=== PATIENT | male | born 1960 | race Caucasian/White ===

== ENCOUNTER 2021-07-09 18:17 | Emergency (ER) | payer OTHER ==
[~2021-07-09] VITALS: Ht 177 cm; Wt 72.5 kg
--- NOTE | 2021-07-09 18:42 | ED Chest Pain ---
General Chief Complaint: Chest Pain Stated Complaint: CHEST PAIN Source: patient (SOMEWHAT LIMITED HISTORIAN) History of Present Illness Date Seen by Provider: Jul 09, 2021 Time Seen by Provider: 18:19 Initial Comments PT ARRIVES VIA POV C/O CHEST PAIN STATES HE WAS DRIVING HOME FROM [place]--HAD ROUTINE FOLLOW UP APPOINTMENT AT TODAY--SEES ONCOLOGY AND ENT FOR HISTORY OF NASOPHARYNGEAL CANCER 4 YEARS AGO STATES HE WAS HAVING SOME PAIN WHILE HE WAS AT , BUT "THOUGHT IT WAS ANXIETY" STATES PAIN REALLY GOT WORSE ABOUT 2 HOURS AGO, WHILE DRIVING HOME--PT LIVES IN [place], [place] PAIN IS IN MID CHEST NO RADIATION OF PAIN NOTHING WORSENS OR IMPROVES PAIN NO SHORTNESS OF BREATH HAS HAD SLIGHT NAUSEA, NO VOMITING NO PALPITATIONS NO DIZZINESS OR SYNCOPE NO SWEATS NO SWELLING IN LEGS/FEET OR PAIN IN CALVES HAS HISTORY OF HTN, BUT DENIES HISTORY OF HEART PROBLEMS PCP: DR. ESCALONA IN [place], [place] Allergies and Home Medications Allergies Coded Allergies: No Known Drug Allergies (Unverified , 07/09/21) Patient Home Medication List Home Medication List Reviewed: Yes Review of Systems Review of Systems Constitutional: no symptoms reported; No diaphoresis, No dizziness EENTM: No Symptoms Reported Respiratory: No Symptoms Reported; Denies Shortness of Air Cardiovascular: See HPI, Chest Pain; Denies Edema, Denies Irregular Heart Rate, Denies Lightheadedness, Denies Palpitations, Denies Syncope Gastrointestinal: See HPI; Denies Abdominal Pain; Nausea; Denies Vomiting Genitourinary: No Symptoms Reported Musculoskeletal: no symptoms reported Skin: no symptoms reported Psychiatric/Neurological: See HPI, Anxiety Endocrine: No Symptoms Reported Hematologic/Lymphatic: No Symptoms Reported Past Uilagzs-Rqztyt-Sfcyrx Hx Patient Social History Tobacco Use?: Yes Tobacco type used: Cigarettes Substance use?: Yes Substance type: Marijuana Alcohol Use?: Yes Past Medical History Surgeries: No Respiratory: No Cardiac: Yes Hypertension Neurological: No Genitourinary: No Gastrointestinal: No Musculoskeletal: Yes (BILATERAL CARPAL TUNNEL--NO SURGERY) Endocrine: No HEENT: Yes (NASOPHARYNGEAL CANCER) Cancer: Yes Did You Recieve Any Treatments: Yes What Type of Treatment Did You: Chemotherapy, Radiation NASOPHARYNGEAL CANCER DX 2017--NO SURGERY, BUT COMPLETED CHEMO AND RADIATION IN 2019 Psychosocial: Yes Anxiety Family Medical History SOCIAL HISTORY: -SMOKES 1 PPD -ETOH--HISTORY OF ABUSE--STATES "SOBER FOR 500 DAYS" PER PT ON 07/09/21 -DRUGS--+ THC USE Physical Exam Vital Signs Vital Signs - First Documented 07/09/21 07/09/21 18:42 22:21 Temp 36.1 Pulse 55 Resp 18 B/P (MAP) 191/102 (131) Pulse Ox 99 O2 Delivery Room Air Capillary Refill : Height, Weight, BMI Height: '" Weight: lbs. oz. kg; BMI Method: General Appearance: No Apparent Distress, WD/WN HEENT: PERRL/EOMI Neck: Full Range of Motion, Normal Inspection, Non Tender, Supple Respiratory: Chest Non Tender, Normal Breath Sounds, No Accessory Muscle Use, No Respiratory Distress Cardiovascular: Regular Rate, Rhythm, No Murmur Gastrointestinal: Normal Bowel Sounds, No Organomegaly, No Pulsatile Mass, Non Tender, Soft Extremity: Normal Capillary Refill, Normal Inspection, Normal Range of Motion, Non Tender, No Calf Tenderness, No Pedal Edema Neurologic/Psychiatric: Alert, Oriented x3, No Motor/Sensory Deficits, sales product manager II- XII Norm as Tested Skin: Normal Color, Warm/Dry Progress/Results/Core Measures Results/Orders Lab Results Laboratory Tests Test 07/09/21 18:48 07/09/21 19:55 07/09/21 21:18 Range/Units White Blood Count 6.3 4.3-11.0 10^3/uL Red Blood Count 4.46 4.30-5.52 10^6/uL Hemoglobin 13.8 13.3-17.7 g/dL Hematocrit 41 40-54 % Mean Corpuscular Volume 92 80-99 fL Mean Corpuscular Hemoglobin 31 25-34 pg Mean Corpuscular Hemoglobin Concent 34 32-36 g/dL Red Cell Distribution Width 13.1 10.0-14.5 % Platelet Count 358 130-400 10^3/uL Mean Platelet Volume 9.4 9.0-12.2 fL Immature Granulocyte % (Auto) 0 % Neutrophils (%) (Auto) 63 42-75 % Lymphocytes (%) (Auto) 23 12-44 % Monocytes (%) (Auto) 9 0-12 % Eosinophils (%) (Auto) 4 0-10 % Basophils (%) (Auto) 1 0-10 % Neutrophils # (Auto) 4.0 1.8-7.8 10^3/uL Lymphocytes # (Auto) 1.5 1.0-4.0 10^3/uL Monocytes # (Auto) 0.6 0.0-1.0 10^3/uL Eosinophils # (Auto) 0.3 0.0-0.3 10^3/uL Basophils # (Auto) 0.1 0.0-0.1 10^3/uL Immature Granulocyte # (Auto) 0.0 0.0-0.1 10^3/uL Prothrombin Time 14.6 12.2-14.7 SEC INR Comment 1.1 0.8-1.4 Activated Partial Thromboplast Time 35 24-35 SEC Sodium Level 136 135-145 MMOL/L Potassium Level 3.5 L 3.6-5.0 MMOL/L Chloride Level 99 98-107 MMOL/L Carbon Dioxide Level 24 21-32 MMOL/L Anion Gap 13 5-14 MMOL/L Blood Urea Nitrogen 18 7-18 MG/DL Creatinine 0.96 0.60-1.30 MG/DL Estimat Glomerular Filtration Rate 79 BUN/Creatinine Ratio 19 Glucose Level 97 70-105 MG/DL Calcium Level 9.5 8.5-10.1 MG/DL Corrected Calcium 9.1 8.5-10.1 MG/DL Magnesium Level 2.0 1.6-2.4 MG/DL Total Bilirubin 0.5 0.1-1.0 MG/DL Aspartate Amino Transf (AST/SGOT) 28 5-34 U/L Alanine Aminotransferase (ALT/SGPT) 19 0-55 U/L Alkaline Phosphatase 110 40-136 U/L Total Creatine Kinase 131 30-200 U/L Creatine Kinase MB 3.6 <6.6 NG/ML Myoglobin 98.2 H 10.0-92.0 NG/ML Troponin I < 0.028 < 0.028 <0.028 NG/ML B-Type Natriuretic Peptide 19.3 <100.0 PG/ML Total Protein 7.5 6.4-8.2 GM/DL Albumin 4.5 3.2-4.5 GM/DL Amylase Level 50 25-125 U/L Lipase 27 8-78 U/L Serum Alcohol < 10 <10 MG/DL Urine Color YELLOW Urine Clarity CLEAR Urine pH 6.5 5-9 Urine Specific [place] 1.020 1.016-1.022 Urine Protein NEGATIVE NEGATIVE Urine Glucose (UA) NEGATIVE NEGATIVE Urine Ketones NEGATIVE NEGATIVE Urine Nitrite NEGATIVE NEGATIVE Urine Bilirubin NEGATIVE NEGATIVE Urine Urobilinogen 0.2 < = 1.0 MG/DL Urine Leukocyte Esterase NEGATIVE NEGATIVE Urine RBC (Auto) NEGATIVE NEGATIVE Urine RBC NONE /HPF Urine WBC 0-2 /HPF Urine Squamous Epithelial Cells NONE /HPF Urine Renal Epithelial Cells NONE /HPF Urine Crystals NONE /LPF Urine Bacteria NEGATIVE /HPF Urine Casts NONE /LPF Urine Mucus NEGATIVE /LPF Urine Culture Indicated NO Urine Opiates Screen NEGATIVE NEGATIVE Urine Oxycodone Screen NEGATIVE NEGATIVE Urine Methadone Screen NEGATIVE NEGATIVE Urine Propoxyphene Screen NEGATIVE NEGATIVE Urine Barbiturates Screen NEGATIVE NEGATIVE Ur Tricyclic Antidepressants Screen NEGATIVE NEGATIVE Urine Phencyclidine Screen NEGATIVE NEGATIVE Urine Amphetamines Screen NEGATIVE NEGATIVE Urine Methamphetamines Screen NEGATIVE NEGATIVE Urine Benzodiazepines Screen NEGATIVE NEGATIVE Urine Cocaine Screen NEGATIVE NEGATIVE Urine Cannabinoids Screen POSITIVE H NEGATIVE My Orders Orders - NADER HOBSON DO Cbc With Automated Diff (07/09/21 18:20) Magnesium (07/09/21 18:20) Chest 1 View, Ap/Pa Only (07/09/21 18:20) Ekg Tracing (07/09/21 18:20) Comprehensive Metabolic Panel (07/09/21 18:20) Myoglobin Serum (07/09/21 18:20) Protime With Inr (07/09/21 18:20) Partial Thromboplastin Time (07/09/21 18:20) O2 (07/09/21 18:20) Monitor-Rhythm Ecg Trace Only (07/09/21 18:20) Ed Iv/Invasive Line Start (07/09/21 18:20) Creatine Kinase (07/09/21 18:20) Creatine Kinase Mb (07/09/21 18:20) Lipase (07/09/21 18:20) Amylase (07/09/21 18:20) BNP (07/09/21 18:20) Troponin I (07/09/21 18:20) Alcohol (07/09/21 18:20) Drug Screen Stat (Urine) (07/09/21 18:20) Ua Culture If Indicated (07/09/21 18:20) Aspirin Chewable Tablet (Baby Aspirin Ch (07/09/21 18:45) Nitroglycerin 0.4 Mg Btl 25's (Nitrostat (07/09/21 18:45) Nitroglycerin Ointment (Nitrobid Ointme (07/09/21 18:45) Ct Angio Chest W (07/09/21 19:55) Iohexol Injection (Omnipaque 350 Mg/Ml 1 (07/09/21 20:15) Received Contrast (Hold Metformin- Contr (07/09/21 20:15) Ns (Ivpb) (Sodium Chloride 0.9% Ivpb Bag (07/09/21 20:15) Troponin I (07/09/21 21:14) Ekg Tracing (07/09/21 21:14) Lorazepam Injection (Ativan Injection) (07/09/21 22:00) Medications Given in ED Current Medications Medications Dose Ordered Sig/Tish Route Start Time Stop Time Status Last Admin Dose Admin Aspirin 324 mg ONCE ONCE PO 07/09/21 18:45 07/09/21 18:46 DC 07/09/21 19:01 81 MG Iohexol 100 ml ONCE ONCE IV 07/09/21 20:15 07/09/21 20:16 DC 07/09/21 20:22 75 ML Lorazepam 1 mg ONCE ONCE IVP 07/09/21 22:00 07/09/21 22:01 DC 07/09/21 22:18 1 MG Sodium Chloride 100 ml ONCE ONCE IV 07/09/21 20:15 07/09/21 20:16 DC 07/09/21 20:22 80 ML Vital Signs/I&O 07/09/21 07/09/21 18:42 22:21 Temp 36.1 Pulse 55 64 Resp 18 18 B/P (MAP) 191/102 (131) 163/99 Pulse Ox 99 98 O2 Delivery Room Air Progress Progress Note : Progress Note GIVEN ASPIRIN, NTG HELD DUE TO NOT CURRENTLY HAVING CHEST PAIN NO COMPLAINTS OF CHEST PAIN OR ANY OTHER COMPLAINTS FOR ENTIRE ER STAY PT AMBULATED TO AND FROM BATHROOM WITHOUT ANY DIFFICULTY OR RETURN OF CHEST PAIN OR ANY SYMPTOMS OF ANY KIND PT HELD FOR 3 HOUR RULE OUT WITH REPEAT TROPONIN AND EKG--BOTH UNCHANGED JUST PRIOR TO DISMISSAL, PT IS C/O ANXIETY AND REQUEST MEDICATION FOR HIS NERVES. ATIVAN ORDERED. NO CHEST PAIN OR ANY OTHER SYMPTOMS AT DISMISSAL Initial ECG Impression Date: Jul 09, 2021 Initial ECG Impression Time: 18:28 Initial ECG Rate: 52 Initial ECG Rhythm: Normal Sinus (RBBB) Initial ECG Comparisson: No Previous ECG Available EKG : EKG Time: 21:18 Rate: 48 Rhythm: S.Tej (RBBB) ECG Comparisson: Unchanged Diagnostic Imaging Comments CXR--PER RADIOLOGIST REPORT AT 1914 The heart size is normal. The pulmonary vascularity is unremarkable. The lungs are clear. No infiltrate, effusion or pneumothorax is detected. IMPRESSION: No acute cardiopulmonary process is detected. CT CHEST ANGIOGRAM--PER RADIOLOGIST REPORT AT 2056 FINDINGS: No pulmonary artery filling defects. Normal caliber thoracic aorta. Normal heart size. No pericardial effusion. No lymphadenopathy. The lungs are clear. No pleural effusion or pneumothorax. No acute osseous findings. Simple appearing presumed cysts in the right kidney. Partially calcified mass which is otherwise low in attenuation in the left adrenal gland measuring 1.5 cm. IMPRESSION: 1. No pulmonary emboli. 2. No acute CT findings in the chest. 3. Indeterminate low attenuation partially calcified nodule in the left adrenal gland. This may be a benign adenoma or sequelae of a remote hemorrhage. Given the history of malignancy, recommend nonemergent multiphase contrast-enhanced cross-sectional imaging for further evaluation. Reviewed: Reviewed by Me Departure Impression Primary Impression: Chest pain Additional Impressions: Right bundle branch block LEFT ADRENAL NODULE HTN (hypertension) Anxiety Disposition: 01 HOME, SELF-CARE Condition: Improved Departure-Patient Inst. Decision time for Depature: 21:51 Referrals: DR. ESCALONA Patient Instructions: Anxiety, Adult (DC), Chest Pain, Adult ED, DASH Diet Add. Discharge Instructions: CONTINUE YOUR REGULAR MEDICATIONS PRESCRIBED FOLLOW UP WITH YOUR PRIMARY CARE DR THIS WEEK FOR FURTHER CARE, RETURN TO ER IF YOUR CHEST PAIN RETURNS All discharge instructions reviewed with patient and/or family. Voiced understanding. NADER HOBSON DO Jul 09, 2021 18:42
[2021-07-09] MEDS ORDERED: NITROGLYCERIN 0.4 MG SL TABS BTL 25'S SL PRN (18:45)
[2021-07-09] MEDS ORDERED: ASPIRIN 81 MG CHEW (CHILDREN'S ASA) PO ONE (18:45)
[2021-07-09] MEDS ORDERED: NITROGLYCERIN 2% OINT 1 GM UNIT DOSE PACKET TOP ONE (18:45)
[2021-07-09 18:53] LABS: BASOPHILS # (AUTO) 0.1 10^3/uL (0.0-0.1); BASOPHILS % (AUTO) 1 % (0-10); EOSINOPHILS # (AUTO) 0.3 10^3/uL (0.0-0.3); EOSINOPHILS % (AUTO) 4 % (0-10); HEMATOCRIT 41 % (40-54); HEMOGLOBIN 13.8 g/dL (13.3-17.7); LYMPHOCYTES # (AUTO) 1.5 10^3/uL (1.0-4.0); LYMPHOCYTES % (AUTO) 23 % (12-44); MEAN CORPUSCULAR HEMOGLOBIN 31 pg (25-34); MEAN CORPUSCULAR HGB CONC 34 g/dL (32-36); MEAN CORPUSCULAR VOLUME 92 fL (80-99); MEAN PLATELET VOLUME 9.4 fL (9.0-12.2); MONOCYTES # (AUTO) 0.6 10^3/uL (0.0-1.0); MONOCYTES % (AUTO) 9 % (0-12); NEUTROPHILS % (AUTO) 63 % (42-75); PLATELET COUNT 358 10^3/uL (130-400); WHITE BLOOD COUNT 6.3 10^3/uL (4.3-11.0)
[2021-07-09 19:04] LABS: ALBUMIN 4.5 GM/DL (3.2-4.5)
[2021-07-09 19:05] LABS: POTASSIUM 3.5 MMOL/L (3.6-5.0)
[2021-07-09 19:06] LABS: CALCIUM 9.5 MG/DL (8.5-10.1)
[2021-07-09 19:07] LABS: INR 1.1 (0.8-1.4); PROTHROMBIN TIME PATIENT 14.6 SEC (12.2-14.7); TOTAL PROTEIN 7.5 GM/DL (6.4-8.2)
[2021-07-09 19:09] LABS: BILIRUBIN,TOTAL 0.5 MG/DL (0.1-1.0)
--- NOTE | 2021-07-09 19:11 | Diagnostic Imaging Report ---
INDICATION: Intermittent chest pain. TIME OF EXAM: 6:43 PM No prior studies are available for comparison. The heart size is normal. The pulmonary vascularity is unremarkable. The lungs are clear. No infiltrate, effusion or pneumothorax is detected. IMPRESSION: No acute cardiopulmonary process is detected. Dictated by: Dictated on workstation # [id number]
[2021-07-09 19:21] LABS: CREATINE KINASE MB 3.6 NG/ML (<6.6)
[2021-07-09 19:55] LABS: CREATININE SERUM 0.96 MG/DL (0.60-1.30)
[2021-07-09 19:59] LABS: BILIRUBIN,URINE NEGATIVE (NEGATIVE); CLARITY,URINE CLEAR; COLOR,URINE YELLOW; GLUCOSE, URINE (UA) NEGATIVE (NEGATIVE); KETONES,URINE NEGATIVE (NEGATIVE); LEUKOCYTE ESTERASE ,URINE NEGATIVE (NEGATIVE); NITRITE,URINE NEGATIVE (NEGATIVE); PH,URINE 6.5 (5-9); PROTEIN,URINE NEGATIVE (NEGATIVE)
[2021-07-09 20:06] LABS: BACTERIA,URINE NEGATIVE /HPF; WBC,URINE 0-2 /HPF
[2021-07-09 20:12] LABS: AMPHETAMINE SCREEN, URINE NEGATIVE (NEGATIVE); BARBITURATE SCREEN URINE NEGATIVE (NEGATIVE); BENZODIAZEPINES SCREEN URINE NEGATIVE (NEGATIVE); CANNABINOID SCREEN, URINE POSITIVE (NEGATIVE); COCAINE SCREEN URINE NEGATIVE (NEGATIVE); METHADONE STAT NEGATIVE (NEGATIVE); METHAMPHETAMINE SCREEN URINE S NEGATIVE (NEGATIVE); OPIATE SCREEN URINE NEGATIVE (NEGATIVE); OXYCODONE STAT NEGATIVE (NEGATIVE); PROPOXYPHENE STAT NEGATIVE (NEGATIVE); TRICYCLIC ANTIDEPRESSANTS SCRE NEGATIVE (NEGATIVE)
[2021-07-09] MEDS ORDERED: NS 100 ML (IVPB) BAG IV ONE (20:15)
[2021-07-09] MEDS ORDERED: HOLD METFORMIN - RECEIVED CONTRAST 20 ML VIAL IV SCH (20:15)
[2021-07-09] MEDS ORDERED: IOHEXOL 350 MG/ML 100 ML (OMNIPAQUE 350) VIAL IV ONE (20:15)
--- NOTE | 2021-07-09 20:52 | Diagnostic Imaging Report ---
PROCEDURE: CT angiography of the chest with contrast. TECHNIQUE: Multiple contiguous axial images were obtained through the chest after uneventful bolus administration of intravenous contrast. 3D reconstructed CTA MIP acquisitions were also performed. Auto Exposure Controls were utilized during the CT exam to meet ALARA standards for radiation dose reduction. INDICATION: Chest pain x2 hours. History of nasopharyngeal cancer. COMPARISON: Chest radiograph 07/09/2021. FINDINGS: No pulmonary artery filling defects. Normal caliber thoracic aorta. Normal heart size. No pericardial effusion. No lymphadenopathy. The lungs are clear. No pleural effusion or pneumothorax. No acute osseous findings. Simple appearing presumed cysts in the right kidney. Partially calcified mass which is otherwise low in attenuation in the left adrenal gland measuring 1.5 cm. IMPRESSION: 1. No pulmonary emboli. 2. No acute CT findings in the chest. 3. Indeterminate low attenuation partially calcified nodule in the left adrenal gland. This may be a benign adenoma or sequelae of a remote hemorrhage. Given the history of malignancy, recommend nonemergent multiphase contrast-enhanced cross-sectional imaging for further evaluation. Dictated by: Dictated on workstation # [id number]
[2021-07-09] MEDS ORDERED: LORazepam INJ 2 MG/ML (ATIVAN) VIAL IVP ONE (22:00)
[2021-07-09 22:21] VITALS: BP 163/99
== END 2021-07-09 22:22 | disposition home or self-care (01) ==
LOC: ER 18:20
DX: R07.9 Chest pain, unspecified (principal); I45.10 Unspecified right bundle-branch block; E27.9 Disorder of adrenal gland, unspecified; I10 Essential (primary) hypertension; F41.9 Anxiety disorder, unspecified; Z72.0 Tobacco use
CPT/HCPCS: 71045; 71275; 80053; 80306; 81000; 82150; 82550; 82553; 83690; 83735; 83874; 83880; 84484; 85025; 85610; 85730; 93005; 93041; 99284; G0480; 36415; 80320